=== PATIENT | male | born 1965 | race Caucasian/White ===

== ENCOUNTER 2017-10-05 13:50 | Outpatient (CLI) | END 2017-10-05 13:51 | disposition home or self-care (01) | LOC: BICRAD 13:50 | PROVIDERS: ATTEND Internal Medicine Hematology & Oncology | DX: C90.00 Multiple myeloma not having achieved remission (principal) | CPT/HCPCS: 77075 ==

== ENCOUNTER 2019-11-06 08:51 | Day surgery (SDC) | payer BC ==
[2019-11-05 08:34] VITALS: BMI 29.9
[2019-11-06 09:06] LABS: #Eosinphils 0.1 thou/uL (0.0-0.7); #Lymphocytes 2.7 thou/uL (1.20-3.40); #Monocytes 0.6 thou/uL (0.11-0.59); %Basophils 0.2 % (0.0-1.0); %Eosinophils 0.9 % (0.0-10.0); %Monocytes 7.6 % (0.0-10.0); %Neutrophils 54.2 % (42.0-75.0); Hemoglobin 14.7 g/dL (14.0-18.0); Mean Corpuscular HGB CONC 32.7 g/dL (32.0-36.0); Mean Corpuscular Hemoglobin 31.7 pg (27.0-31.0); Mean Platelet Volume 7.9 fL (7.4-10.4); Platelet Count 166 thou/uL (130-400); RBC Distribution Width 12.5 % (11.5-14.5); Red Blood Cell (RBC) Count 4.62 mill/uL (4.70-6.10); White Blood Cell (WBC) Count 7.4 thou/uL (4.8-10.8)
[2019-11-06 09:13] LABS: INR-International Normal Ratio 0.8; PTT 24.3 SEC (22.9-36.1); Prothrombin Time 10.8 SEC (12.0-14.7)
--- NOTE | 2019-11-06 11:26 | CT ---
CT-guided bone marrow biopsy HISTORY: Myeloma. FINDINGS: After explaining the procedure and answering all questions, limited CT imaging of the pelvi s was performed. Sterile technique, buffered local anesthesia, sonographic guidance, and a left posterior approach were used to carefully advance an 11-gauge bone biopsy needle to the posterior cor michael of the left ilium. Blood aspirate obtained and submitted to pathology. Core bone marrow specimen obtained. Adequacy conf irmed by pathology. Postprocedure imaging shows no evidence of complication. Patient tolerated the procedure well and was returned dismissed in good condition. IMPRESSION: Technically successful CT-guided bone marrow biopsy. Pathology is pending.
[2019-11-06 11:32] VITALS: BP 140/91; TEMP 97.8
== END 2019-11-06 11:50 | disposition home or self-care (01) ==
LOC: CT 08:51
PROVIDERS: ATTEND Internal Medicine Hematology & Oncology
PROC: 079T3ZX Drainage of Bone Marrow, Percutaneous Approach, Diagnostic (ICD-10-PCS; principal; 2019-11-06)
PROC: 07DR3ZX Extraction of Iliac Bone Marrow, Percutaneous Approach, Diagnostic (ICD-10-PCS; principal; 2019-11-06)
DX: D47.2 Monoclonal gammopathy (principal); E11.9 Type 2 diabetes mellitus without complications; E78.00 Pure hypercholesterolemia, unspecified; Z80.7 Family history of other malignant neoplasms of lymphoid, hematopoietic and related tissues
CPT/HCPCS: 20225; 36415; 77012; 85025; 85097; 85610; 85730; 88184; 88237; 88305; 88311; 88313

== ENCOUNTER → 2022-12-09 | Outpatient (CLI) | payer BC | LOC: PET 12:30 | PROVIDERS: ATTEND Internal Medicine Hematology & Oncology | DX: C90.00 Multiple myeloma not having achieved remission (principal); R22.42 Localized swelling, mass and lump, left lower limb | CPT/HCPCS: 78816; A9552 ==